=== PATIENT | male | born 1990 | race African-American/Black ===

== ENCOUNTER 2019-07-22 14:26 | Inpatient (IN) | payer BC ==
[2019-07-22 15:53] LABS: Basophils % (A) 0 %; Eosinophils # (A) 0.2 k/uL (0-0.7); Eosinophils % (A) 2 %; HCT 43.3 % (39.0-53.0); HGB 13.9 gm/dL (13.0-17.5); Lymphocytes # (A) 1.4 k/uL (1.0-4.8); Lymphocytes % (A) 15 %; MCH 28.6 pg (25.0-35.0); MCV 89.3 fL (80.0-100.0); Mean Platelet Volume 8.6; Monocytes # (A) 0.3 k/uL (0-1.0); Monocytes % (A) 3 %; Neutrophils # (A) 7.4 k/uL (1.3-7.7); Neutrophils % (A) 79 %; Platelet Count 206 k/uL (150-450); RBC 4.85 m/uL (4.30-5.90); RDW 11.9 % (11.5-15.5); WBC 9.4 k/uL (3.8-10.6)
[2019-07-22 15:59] LABS: ALT 30 U/L (4-49); AST 26 U/L (17-59); African American GFR (CKD) >90 (>60 ml/min/1.73 sqM); Alkaline Phosphatase 84 U/L (38-126); Amylase 103 U/L (30-110); Anion Gap 10 mmol/L; Blood Urea Nitrogen 10 mg/dL (9-20); Calcium 9.1 mg/dL (8.4-10.2); Carbon Dioxide 23 mmol/L (22-30); Chloride 103 mmol/L (98-107); Glucose 104 mg/dL (74-99); Non-African American GFR(CKD) >90 (>60 ml/min/1.73 sqM); Potassium 3.9 mmol/L (3.5-5.1); Sodium 136 mmol/L (137-145); Total Bilirubin 0.4 mg/dL (0.2-1.3); Total Protein 7.7 g/dL (6.3-8.2)
[2019-07-22] MEDS ORDERED: SODIUM CHLORIDE 0.9% 1,000 ML IV ONE ×2 (16:11→17:43)
[2019-07-22] MEDS ORDERED: MORPHINE SULFATE 4 MG/ML SYRINGE IV STA (16:17)
[2019-07-22] MEDS ORDERED: ONDANSETRON 4 MG/2 ML VIAL IVP STA (16:17)
--- NOTE | 2019-07-22 16:20 | ED ---
General Adult HPI - General Chief complaint: Abdominal Pain Stated complaint: Abd Pain/BRANDON Time Seen by Provider: 07/22/19 15:35 Source: patient, RN notes reviewed, old records reviewed Mode of arrival: ambulatory Limitations: no limitations - History of Present Illness Initial comments: 29-year-old male patient with no pertinent past medical history of present to the chief complaint of 4 days of diffuse abdominal pain. Patient states that his whole abdomen. Nonlocalized. States he has nausea without emesis. If he has been somewhat constipated however patient took stool softener and was able to have a bowel movement yesterday. Denies any upper respiratory symptoms, denies any other complaints. Systemic: Pt denies fatigue, fever/chills, rash. Pt denies weakness, night sweats, weight loss. Neuro: Pt denies headache, visual disturbances, syncope or pre-syncope. HEENT: Pt denies ocular discharge or irritation, otalgia, rhinorrhea, pharyngitis or notable lymphadenopathy. Cardiopulmonary: Pt denies chest pain, SOB, heart palpitations, dyspnea on exertion. Abdominal/GI: Pt denies v/d. : Pt denies dysuria, burning w/ urination, frequency/urgency. Denies new onset urinary or bowel incontinence. MSK: Pt denies myalgia, loss of strength or function in extremities. Neuro: Pt denies new onset weakness, paresthesias. - Related Data Allergies Allergy/AdvReac Type Severity Reaction Status Date / Time No Known Allergies Allergy Verified 07/22/19 15:21 Review of Systems ROS Statement: Those systems with pertinent positive or pertinent negative responses have been documented in the HPI. ROS Other: All systems not noted in ROS Statement are negative. Past Medical History Past Medical History: No Reported History History of Any Multi-Drug Resistant Organisms: None Reported Past Surgical History: No Surgical Hx Reported Past Psychological History: No Psychological Hx Reported Smoking Status: Current every day smoker Past Alcohol Use History: None Reported Past Drug Use History: None Reported General Exam - General Exam Comments Initial Comments: Constitutional: NAD, AOX3, Pt has pleasant affect. HEENT: NC/AT, trachea midline, neck supple, no lymphadenopathy. Posterior pharynx non erythematous, without exudates. External ears appear normal, without discharge. Mucous membranes moist. Eyes PERRLA, EOM intact. There is no scleral icterus. No pallor noted. Cardiopulmonary: RRR, no murmurs, rubs or gallops, no JVD noted. Lungs CTAB in anterior and posterior rios. No peripheral edema. Abdominal exam: Abdomen soft and non-distended. Abdomen moderately tender to palpation in all 4 quadrants, no focal area of tenderness. Bowel sounds active in LLQ. No hepatosplenomegaly. No ecchymosis Neuro: CN II-XII grossly intact. No nuchal rigidity. No raccon eyes, no sosa sign, no hemotympanum. No cervical spinal tenderness. MSK: No posterior calf tenderness bilaterally, homans sign negative bilaterally. Posterior tibialis and radial pulse +2 bilaterally. Sensation intact in upper and lower extremities. Full active ROM in upper and lower extremities, 5/5 stregnth. Limitations: no limitations Course Vital Signs 07/22/19 15:16 Temperature 99.0 F Pulse Rate 87 Respiratory 16 Rate Blood Pressure 119/83 O2 Sat by Pulse 100 Oximetry Medical Decision Making - Medical Decision Making 29-year-old male patient with no pertinent past medical history of present to the chief complaint of 4 days of diffuse abdominal pain. Patient states that his whole abdomen. Nonlocalized. States he has nausea without emesis. If he has been somewhat constipated however patient took stool softener and was able to have a bowel movement yesterday. Denies any upper respiratory symptoms, denies any other complaints. Patient vital signs are stable, afebrile. Physical exam displayed generalized abdominal tenderness nonlocalized. Laboratory investigations significant for mildly elevated lipase. CT abdomen and pelvis obtained displayed moderate acute interstitial pancreatitis with inflammatory edema tracking down the retroperitoneum paracolic gutters. Some reactive duodenitis in mild to moderate pelvic free fluid and presacral edema. No biliary ductal dilation. Patient will be admitted for further evaluation, rehydration symptoms. Patient denies alcohol usage. Case discussed with Dr. Tian. - Lab Data Result diagrams: 07/22/19 15:37 07/22/19 15:37 Lab Results 07/22/19 07/22/19 07/22/19 Range/Units 15:37 15:37 15:37 WBC 9.4 (3.8-10.6) k/uL RBC 4.85 (4.30-5.90) m/uL Hgb 13.9 (13.0-17.5) gm/dL Hct 43.3 (39.0-53.0) % MCV 89.3 (80.0-100.0) fL MCH 28.6 (25.0-35.0) pg MCHC 32.0 (31.0-37.0) g/dL RDW 11.9 (11.5-15.5) % Plt Count 206 (150-450) k/uL Neutrophils % 79 % Lymphocytes % 15 % Monocytes % 3 % Eosinophils % 2 % Basophils % 0 % Neutrophils # 7.4 (1.3-7.7) k/uL Lymphocytes # 1.4 (1.0-4.8) k/uL Monocytes # 0.3 (0-1.0) k/uL Eosinophils # 0.2 (0-0.7) k/uL Basophils # 0.0 (0-0.2) k/uL Sodium 136 L (137-145) mmol/L Potassium 3.9 (3.5-5.1) mmol/L Chloride 103 (98-107) mmol/L Carbon Dioxide 23 (22-30) mmol/L Anion Gap 10 mmol/L BUN 10 (9-20) mg/dL Creatinine 0.62 L (0.66-1.25) mg/dL Est GFR (CKD-EPI)AfAm >90 (>60 ml/min/1.73 sqM) Est GFR (CKD-EPI)NonAf >90 (>60 ml/min/1.73 sqM) Glucose 104 H (74-99) mg/dL Plasma Lactic Acid Aaron 1.4 (0.7-2.0) mmol/L Calcium 9.1 (8.4-10.2) mg/dL Total Bilirubin 0.4 (0.2-1.3) mg/dL AST 26 (17-59) U/L ALT 30 (4-49) U/L Alkaline Phosphatase 84 (38-126) U/L Total Protein 7.7 (6.3-8.2) g/dL Albumin 4.0 (3.5-5.0) g/dL Amylase 103 (30-110) U/L Lipase 485 H (23-300) U/L Disposition Clinical Impression: Pancreatitis Disposition: ADMITTED IP TO THIS [facility] Condition: Serious Is patient prescribed a controlled substance at d/c from ED?: No Referrals: Amy Acharya DO [Primary Care Provider] - 1-2 days
--- NOTE | 2019-07-22 17:28 | CT ---
EXAMINATION TYPE: CT abdomen pelvis w con DATE OF EXAM: 07/22/2019 COMPARISON: None HISTORY: 29-year-old male with acute, nonlocalized ABDOMINAL PAIN X4 DAYS TECHNIQUE: Contiguous axial scanning of the abdomen and pelvis following administration of 100 ml Iso xander 300 IV contrast. Delayed images through the kidneys and coronal/sagittal reconstructions perform ed. CT DLP: 2215.6 mGycm Automated exposure control for dose reduction was used. FINDINGS: LUNG BASES: No significant abnormality is appreciated. LIVER/GB: No significant abnormality is appreciated. No biliary ductal dilatation. PANCREAS: Mild thickening of the pancreas with a surrounding fat stranding. No intrapancreatic or per ipancreatic fluid collection is identified. Main portal vein appears patent. Inflammatory edema track s down the bilateral retroperitoneum down into the right greater than left pericolic gutters and into the pelvis. SPLEEN: No significant abnormality is seen. ADRENALS: No significant abnormality is seen. KIDNEYS: A 1 cm left upper pole renal cortical cyst. Symmetric uptake and excretion of contrast from both kidneys. BOWEL: There seems to be some hyperemia of the duodenum. No dilated small bowel. No free air. There i s mild to moderate pelvic free fluid consistent with presacral edema that seems to be tracking down t he abdomen. LYMPH NODES: No abdominal or pelvic lymphadenopathy seen. PELVIS: Bladder partially distended. Left greater than right pelvic phleboliths. As mentioned above, pelvic free fluid and presacral edema. BONES: No osseous destructive process. IMPRESSION: 1. MODERATE ACUTE INTERSTITIAL PANCREATITIS WITH INFLAMMATORY EDEMA TRACKING DOWN THE RETROPERITONEUM AND PERICOLIC GUTTERS. 2. SOME REACTIVE DUODENITIS AND MILD TO MODERATE PELVIC FREE FLUID AND PRESACRAL EDEMA AND 3. NO BILIARY DUCTAL DILATATION.
[2019-07-22] MEDS ORDERED: ONDANSETRON 4 MG/2 ML VIAL IVP PRN (17:41)
[2019-07-22] MEDS ORDERED: NALOXONE 0.4 MG/ML 1 ML VIAL IV PRN (17:41)
[2019-07-22] MEDS ORDERED: PANTOPRAZOLE 40 MG/10 ML VIAL IVP STA (17:43)
[2019-07-22 17:54] LABS: Appearance,Urine Clear (Clear); Bilirubin,Urine Negative (Negative); Blood,Urine Negative (Negative); Color,Urine Yellow; Glucose,Urine (UA) Negative (Negative); Ketones,Urine 2+ (Negative); Leukocyte Esterase,Urine Negative (Negative); Nitrite,Urine Negative (Negative); PH, Urine 7.5 (5.0-8.0); Protein,Urine Negative (Negative); Specific Gravity,Urine 1.032 (1.001-1.035); Urobilinogen,Urine <2.0 mg/dL (<2.0)
[2019-07-22] MEDS: MORPHINE SULFATE 4 MG/ML SYRINGE IV PRN (19:41)
[2019-07-22] MEDS: SODIUM CHLORIDE 0.9% 1,000 ML IV SCH (21:51)
[2019-07-23] MEDS: MORPHINE SULFATE 4 MG/ML SYRINGE IV PRN ×4 (00:35→19:40)
[2019-07-23] MEDS: SODIUM CHLORIDE 0.9% 1,000 ML IV SCH ×4 (04:03→23:23)
[2019-07-23] MEDS: PANTOPRAZOLE 40 MG/10 ML VIAL IVP SCH (07:32)
[2019-07-23 08:48] LABS: Basophils % (A) 0 %; Eosinophils % (A) 0 %; HGB 12.7 gm/dL (13.0-17.5); Hypochromasia Slight; Lymphocytes % (A) 16 %; MCH 28.7 pg (25.0-35.0); MCHC 31.8 g/dL (31.0-37.0); MCV 90.4 fL (80.0-100.0); Mean Platelet Volume 8.7; Monocytes # (A) 0.6 k/uL (0-1.0); Monocytes % (A) 5 %; Neutrophils # (A) 9.6 k/uL (1.3-7.7); Neutrophils % (A) 77 %; Platelet Count 193 k/uL (150-450); RBC 4.42 m/uL (4.30-5.90); RDW 12.1 % (11.5-15.5); WBC 12.4 k/uL (3.8-10.6)
[2019-07-23 09:05] LABS: ALT 23 U/L (4-49); AST 22 U/L (17-59); African American GFR (CKD) >90 (>60 ml/min/1.73 sqM); Albumin 3.4 g/dL (3.5-5.0); Alkaline Phosphatase 66 U/L (38-126); Anion Gap 8 mmol/L; Blood Urea Nitrogen 9 mg/dL (9-20); Calcium 8.3 mg/dL (8.4-10.2); Carbon Dioxide 22 mmol/L (22-30); Chloride 104 mmol/L (98-107); Glucose 86 mg/dL (74-99); Non-African American GFR(CKD) >90 (>60 ml/min/1.73 sqM); Potassium 3.7 mmol/L (3.5-5.1); Sodium 134 mmol/L (137-145); Total Bilirubin 0.7 mg/dL (0.2-1.3); Total Protein 6.8 g/dL (6.3-8.2)
[2019-07-23] MEDS: ACETAMINOPHEN TAB 325 MG TAB PO PRN (22:01)
--- NOTE | 2019-07-23 22:54 | P.HPIM ---
History of Present Illness H&P Date: 07/23/19 Chief Complaint: abdominal pain Rober Donnelly is a 29 yo M with no significant PMH who presented to the ED complaining of a recent history of abdominal pain over the past week. He states that every day he has had generalized abdominal pain, no appetite and nausea. He denies any vomiting. He is a nonsmoker and reports infrequent alcohol use, most recently a few weeks ago. He denies any previous history of similar events. He denies any recent viral symptoms including fever, chills, body aches, cough. In the ED vitals were stable, lipase 485, WBC and LFTs unremarkable. Review of Systems All systems: negative Constitutional: Reports malaise, Denies chills, Denies fever Eyes: denies blurred vision, denies pain Ears, nose, mouth and throat: Denies headache, Denies sore throat Cardiovascular: Denies chest pain, Denies shortness of breath Respiratory: Denies cough Gastrointestinal: Reports abdominal pain, Reports nausea, Denies diarrhea, Denies vomiting Musculoskeletal: Denies myalgias Integumentary: Denies pruritus, Denies rash Neurological: Denies numbness, Denies weakness Psychiatric: Denies anxiety, Denies depression Endocrine: Denies fatigue, Denies weight change Past Medical History Past Medical History: No Reported History History of Any Multi-Drug Resistant Organisms: None Reported Past Surgical History: No Surgical Hx Reported Past Anesthesia/Blood Transfusion Reactions: No Reported Reaction Past Psychological History: No Psychological Hx Reported Smoking Status: Current every day smoker Past Alcohol Use History: None Reported Past Drug Use History: None Reported - Past Family History Father Family Medical History: No Reported History Mother Family Medical History: No Reported History Medications and Allergies Home Medications Medication Instructions Recorded Confirmed Type Ibuprofen 600 mg PO Q8H PRN 07/23/19 07/23/19 History Allergies Allergy/AdvReac Type Severity Reaction Status Date / Time No Known Allergies Allergy Verified 07/23/19 10:01 Physical Exam Vitals: Vital Signs Temp Pulse Pulse Pulse Resp BP BP 07/23/19 21:10 101.8 F H 99 18 115/66 07/23/19 15:11 92 20 07/23/19 12:09 98.9 F 90 20 129/74 07/23/19 08:00 97 16 07/23/19 05:00 100.3 F H 97 16 121/71 07/23/19 00:34 99.6 F 102 H 16 125/80 07/23/19 00:12 100.1 F H 94 20 124/74 Pulse Ox 07/23/19 21:10 95 07/23/19 15:11 07/23/19 12:09 97 07/23/19 08:00 07/23/19 05:00 98 07/23/19 00:34 98 07/23/19 00:12 98 Intake and Output 07/23/19 07/23/19 07/23/19 06:59 14:59 22:59 Intake Total 1200 2660 Balance 1200 2660 Intake: Intake, IV Titration 1200 1800 Amount Sodium Chloride 0.9% 1, 1200 1800 000 ml @ 150 mls/hr IV . Q6H40M [facility] Rx#:[id number] Oral 860 Other: Voiding Method Toilet Toilet Toilet Urinal Urinal Urinal # Voids 2 4 4 Weight 149.685 kg General: well nourished, well developed, NAD. Vitals reviewed Eyes: PERRL, EOMI, conjunctiva normal HENT: normocephalic, mucus membranes moist Neck: supple, no JVD Lungs: normal respiratory effort, no wheezes or rales CV: Regular rate and rhythm, no murmur. Peripheral pulses 2+ Abdomen: soft, nondistended, no organomegaly. Tenderness to palpation Lymph: no cervical or axillary LAD Skin: warm and dry. Neuro: A&Ox3, normal mood and affect Results CBC & Chem 7: 07/23/19 08:04 07/23/19 08:04 Labs: Abnormal Lab Results - Last 24 Hours (Table) 07/23/19 07/23/19 Range/Units 08:04 08:04 WBC 12.4 H (3.8-10.6) k/uL Hgb 12.7 L (13.0-17.5) gm/dL Neutrophils # 9.6 H (1.3-7.7) k/uL Sodium 134 L (137-145) mmol/L Calcium 8.3 L (8.4-10.2) mg/dL Albumin 3.4 L (3.5-5.0) g/dL Thrombosis Risk Factor Assmnt - Choose All That Apply Each Factor Represents 1 point: Obesity (BMI >25) Other Risk Factors: No Other congenital or acquired thrombophilia - If yes, enter type in comment: No Thrombosis Risk Factor Assessment Total Risk Factor Score: 1 Thrombosis Risk Factor Assessment Level: Low Risk Assessment and Plan (1) Pancreatitis Current Visit: Yes Status: Acute Code(s): K85.90 - ACUTE PANCREATITIS WITHOUT NECROSIS OR INFECTION, UNSP SNOMED Code(s): 10877440 Plan: Acute pancreatitis. GI consult. Consider viral pancreatitis. Pain control and IV fluids. Clear liquid diet
[2019-07-24] MEDS: MORPHINE SULFATE 4 MG/ML SYRINGE IV PRN ×4 (01:05→19:55)
--- NOTE | 2019-07-24 04:39 | CONS ---
CONSULTATION DATE OF DICTATION: 07/23/2019 REASON FOR CONSULTATION: Acute pancreatitis. HISTORY OF PRESENT ILLNESS: The patient is a 29-year-old -[place] male with no significant past medical history, admitted to the hospital with diffuse abdominal pain mostly in the epigastric area and right upper quadrant area for the last 4 days duration. The pain continued to get progressively worse; hence, he came to the emergency room yesterday and was noted to have mild elevation of amylase and lipase consistent with acute pancreatitis. He did have a CT of the abdomen and pelvis done that showed a peripancreatic inflammation with inflammatory edema tracking down the retroperitoneum and pericolic gutters consistent with acute pancreatitis. No evidence of gallstone or biliary ductal dilation noted. The patient never had pancreatitis in the past. He reports no prior history of peptic ulcer disease. Denies any new medications that he has been taking recently. No family history of acute pancreatitis. He denies any alcohol use. PAST MEDICAL HISTORY: Unremarkable. PAST SURGICAL HISTORY: Unremarkable. MEDICATIONS AT HOME: Ibuprofen p.r.n. ALLERGIES: No known drug allergies. SOCIAL HISTORY: No smoking. No alcohol use. FAMILY HISTORY: Unremarkable. REVIEW OF SYSTEMS: CARDIOPULMONARY: No chest pain or shortness of breath. GENITOURINARY: No dysuria or hematuria. MUSCULOSKELETAL: Unremarkable. SKIN: Unremarkable. ENDOCRINE: Unremarkable. PSYCHIATRY: Unremarkable. NEUROLOGY: Unremarkable. ENT/VISION: Unremarkable. CONSTITUTIONAL: No recent weight loss. No fever, chills, night sweats. PHYSICAL EXAMINATION: On physical examination, he appears comfortable, no apparent distress. Vital signs are stable. Blood pressure is 129/74, T-max was 100.3, but temperature today is 98.9. HEENT EXAMINATION: Unremarkable. Conjunctivae pink. Sclerae anicteric. Oral cavity, no lesions. NECK: No JVD or lymph node enlargement. CHEST: Clear to auscultation. HEART: Regular rate and rhythm. ABDOMEN: Soft. There was tenderness in the epigastric and all of the upper abdomen. No rebound or rigidity. Mild tenderness in the lower abdominal area. EXTREMITIES: No pedal edema. SKIN: No rashes. NEUROLOGIC: Alert and oriented x3. No focal deficits. LABS: Labs at the time of admission to the hospital: Amylase is 103, lipase is 485. Today, lipase is 255. AST, ALT, T-bilirubin and alkaline phosphatase are within normal limits. WBC 9.4, hemoglobin 13.9. Today, WBC is 12.4 and hemoglobin is 12.7. IMPRESSION: This is a patient who presents to the hospital with epigastric pain for the last 3 to 4 days duration, no history of alcohol use, noted to have mild elevation of lipase consistent with acute pancreatitis. CT of the abdomen is showing findings of peripancreatic edema with interstitial edema tracking down into the pericolic gutters consistent with acute pancreatitis. As mentioned earlier, no history of alcohol use and CT of the abdomen did not show any evidence of gallstones. His normal transaminases argue against acute biliary pancreatitis. Etiology of pancreatitis remains unclear, needs to be investigated further. RECOMMENDATIONS: 1. Continue with symptomatic and supportive care. 2. N.p.o. except ice chips. 3. Repeat labs in the morning. 4. We will obtain fasting serum triglycerides as well as IgG4 levels to evaluate for autoimmune pancreatitis. 5. If symptomatically he is improving, we can start him on a clear liquid diet tomorrow and advance as tolerated. 6. We will follow with you closely. Thank you for this consultation. MMODL / IJN: [id number] /
[2019-07-24] MEDS: ACETAMINOPHEN TAB 325 MG TAB PO PRN ×2 (06:02→11:37)
[2019-07-24] MEDS: SODIUM CHLORIDE 0.9% 1,000 ML IV SCH ×3 (06:05→20:02)
[2019-07-24] MEDS: PANTOPRAZOLE 40 MG/10 ML VIAL IVP SCH (07:34)
[2019-07-24 08:00] LABS: Cholesterol 167 mg/dL (<200); HDL Cholesterol 36 mg/dL (40-60); LDL Cholesterol,Calculated 114 mg/dL (0-99); Triglycerides 83 mg/dL (<150)
[2019-07-24] MEDS: SENNOSIDES-DOCUSATE SODIUM 1 EACH TAB PO SCH ×2 (11:37→20:02)
[2019-07-24 13:15] LABS: IgG Subclass 3 22.3 mg/dL (11.0-85.0); IgG Subclass 4 76.2 mg/dL (3.0-175.0)
[2019-07-24] MEDS: IBUPROFEN 400 MG TAB PO PRN (18:12)
--- NOTE | 2019-07-24 22:41 | PN ---
PROGRESS NOTE DATE OF DICTATION: 07/24/2019 This patient is a 29-year-old pleasant white male admitted to the hospital with acute pancreatitis. He is doing better today. Still has some epigastric discomfort. On a clear liquid diet, tolerating well. Has some nausea but no emesis. No fever, chills, night sweats. PHYSICAL EXAMINATION: VITAL SIGNS: Blood pressure 112/70, pulse rate 81, T-max 99. HEENT examination unremarkable. Conjunctivae pink. Sclerae anicteric. Oral cavity no lesions. NECK: No JVD or lymph node enlargement. CHEST: Clear to auscultation. HEART: Regular rate and rhythm. ABDOMEN: Soft. There was tenderness in the epigastric area. Bowel sounds are positive. No organomegaly. EXTREMITIES: No pedal edema. NEUROLOGIC: Alert and oriented x3. No focal deficits. LABS: WBC 12.4, hemoglobin 12.7, platelets normal. Basic metabolic panel is within normal limits. Lipase is normal at 257. Fasting triglycerides 83. Serum IgG4 levels are still pending. IMPRESSION: Acute pancreatitis, first episode. No history of alcohol use. Ultrasound of the gallbladder did not show any evidence of gallstones. The patient does not drink any alcohol. Fasting triglyceride levels are nausea. Serum IgG4 levels are still pending. Etiology of pancreatitis remains unclear. Overall, patient is gradually improving. RECOMMENDATIONS: 1. Advance to a low-fat diet. 2. Pain medications as needed. 3. Repeat labs in the morning. 4. If he is improving, he can be discharged home with outpatient followup in 2-3 weeks. Based on his symptoms, we will consider referral for an EUS of the pancreas on an outpatient basis. The plan was discussed with the patient. He is agreeable to it. Thank you for this consultation. MMODL / IJN: [id number] /
--- NOTE | 2019-07-24 23:01 | P.PN ---
Subjective Progress Note Date: 07/24/19 Pt continues to complain of abdominal pain but feels it is improving. He was febrile overnight with tmax 101.8, this resolved with tylenol and no further fevers. Objective - Vital Signs Vital signs: Vital Signs Temp 98.5 F 07/24/19 20:08 Pulse 82 07/24/19 15:15 Resp 20 07/24/19 15:15 BP 112/70 07/24/19 12:17 Pulse Ox 97 07/24/19 12:17 Intake & Output 07/24/19 07/24/19 07/25/19 06:59 18:59 06:59 Intake Total 2980 2000 1000 Balance 2980 2000 1000 Intake: Intake, IV Titration 1800 900 400 Amount Sodium Chloride 0.9% 1, 1800 900 400 000 ml @ 150 mls/hr IV . Q6H40M [facility] Rx#:[id number] Oral 1180 1100 600 Other: Voiding Method Toilet Toilet Urinal Urinal # Voids 3 4 1 - Exam General: well nourished, well developed, NAD. Vitals reviewed Abdomen: soft, nondistended, no organomegaly. TTP epigastric, improved Skin: warm and dry. Neuro: A&Ox3, normal mood and affect - Labs CBC & Chem 7: 07/23/19 08:04 07/23/19 08:04 Labs: Abnormal Lab Results - Last 24 Hours (Table) 07/23/19 07/24/19 Range/Units 08:04 06:55 LDL Cholesterol, Calc 114 H (0-99) mg/dL HDL Cholesterol 36 L (40-60) mg/dL IgG1 1130.0 H (405.0-1011.0) mg/dL Assessment and Plan (1) Pancreatitis Current Visit: Yes Status: Acute Code(s): K85.90 - ACUTE PANCREATITIS WITHOUT NECROSIS OR INFECTION, UNSP SNOMED Code(s): 11257195 Plan: Acute pancreatitis. GI following and rule out autoimmune pancreatitis. Consider viral. Pain control and IV fluids. Advance diet today
[2019-07-24 23:05] VITALS: RESP 16
[2019-07-25] MEDS: MORPHINE SULFATE 4 MG/ML SYRINGE IV PRN ×2 (03:24→07:36)
[2019-07-25] MEDS: SODIUM CHLORIDE 0.9% 1,000 ML IV SCH ×2 (03:26→12:11)
[2019-07-25 05:58] VITALS: BP 138/84; PULSE 75; TEMP 98.4
[2019-07-25] MEDS: IBUPROFEN 400 MG TAB PO PRN (07:35)
[2019-07-25] MEDS: SENNOSIDES-DOCUSATE SODIUM 1 EACH TAB PO SCH (07:35)
[2019-07-25 07:36] LABS: ALT 18 U/L (4-49); AST 19 U/L (17-59); African American GFR (CKD) >90 (>60 ml/min/1.73 sqM); Albumin 3.1 g/dL (3.5-5.0); Alkaline Phosphatase 65 U/L (38-126); Anion Gap 5 mmol/L; Blood Urea Nitrogen 6 mg/dL (9-20); Calcium 8.4 mg/dL (8.4-10.2); Carbon Dioxide 27 mmol/L (22-30); Chloride 105 mmol/L (98-107); Glucose 99 mg/dL (74-99); Non-African American GFR(CKD) >90 (>60 ml/min/1.73 sqM); Potassium 3.3 mmol/L (3.5-5.1); Sodium 137 mmol/L (137-145); Total Bilirubin 0.7 mg/dL (0.2-1.3); Total Protein 6.4 g/dL (6.3-8.2)
[2019-07-25] MEDS: PANTOPRAZOLE 40 MG/10 ML VIAL IVP SCH (07:38)
[2019-07-25] MEDS ORDERED: POTASSIUM CHLORIDE ER 20 MEQ TAB.ER PO STA (10:49)
--- NOTE | 2019-07-25 11:22 | P.DS ---
Providers Date of admission: 07/22/19 17:59 Expected date of discharge: 07/25/19 Attending physician: Tariq Miller MD Consults: 07/22/19 17:41 Consult Physician Stat Consulting Provider: Marya Rico Consult Reason/Comments: acute pancreatitis Do you want consulting provider notified?: Yes Primary care physician: Amy Acharya Hospital Course: Final Diagnoses: Acute pancreatitis, rule out autoimmune pancreatitis, possibly viral Ongoing nicotine dependence Hospital course:Rober Donnelly is a 29 yo M with no significant PMH who presented to the ED complaining of a recent history of abdominal pain over the past week. He states that every day he has had generalized abdominal pain, no appetite and nausea. He denies any vomiting. He is a nonsmoker and reports i nfrequent alcohol use, most recently a few weeks ago. He denies any previous history of similar events. He denies any recent viral symptoms including fever, chills, body aches, cough. In the ED vitals were stable, lipase 485, WBC and LFTs unremarkable. Evaluated by GI, workup in progress, ruling out autoimmune. GI also recommending possibly outpatient EUS. Afebrile, tolerating a low-fat diet, with no nausea or vomiting. Significant clinical improvement Cleared by GI for discharge. Patient is being discharged home today in stable condition with guarded prognosis. The impression and plan of care has been dictated as directed. : I performed a history and examination of this patient, discussed the same with the dictator. I agree with the dictator's note ,documented as a scribe. Any additional findings or plans will be noted. Patient Condition at Discharge: Stable Plan - Discharge Summary Discharge Rx Participant: No New Discharge Prescriptions: New Hydrocodone/Acetaminophen [[place] 5-325] 1 tab PO Q6HR PRN 3 Days #12 tab PRN Reason: Pain No Action Ibuprofen 600 mg PO Q8H PRN PRN Reason: Headache Discharge Medication List Ibuprofen 600 mg PO Q8H PRN 07/23/19 [History] Hydrocodone/Acetaminophen [[place] 5-325] 1 tab PO Q6HR PRN 3 Days #12 tab 07/25/19 [Rx] Follow up Appointment(s)/Referral(s): Marya Rico MD [STAFF PHYSICIAN] - 08/07/19 10:30 am (Outpatient EUS to be arranged) Amy Acharya DO [Primary Care Provider] - 3 Days (please call office to set up appt.) Activity/Diet/Wound Care/Special Instructions: Diet low-fat No smoking
== END 2019-07-25 12:07 | disposition home or self-care (01) | DRG 439 ==
LOC: EC 14:26 → 5NMEDONC 17:59
PROVIDERS: ADMIT Family Medicine; ATTEND Family Medicine
DX: K85.80 Other acute pancreatitis without necrosis or infection (principal); Z68.41 Body mass index [BMI] 40.0-44.9, adult; E66.9 Obesity, unspecified; F17.200 Nicotine dependence, unspecified, uncomplicated; K29.80 Duodenitis without bleeding; R74.8 Abnormal levels of other serum enzymes
CPT/HCPCS: 36415; 74177; 80053; 80061; 81003; 82150; 82787; 83605; 83690; 85025; 87040; 87635; 96361; 96374; 96375; 96376; 99285

== ENCOUNTER 2020-05-09 22:23 | Emergency (ER) | payer BC ==
[2020-05-09 22:42] VITALS: RESP 18
[2020-05-09] MEDS ORDERED: ONDANSETRON 4 MG/2 ML VIAL IVP STA (22:46)
[2020-05-09] MEDS ORDERED: SODIUM CHLORIDE 0.9% 500 ML 500 ML IV STA (22:46)
--- NOTE | 2020-05-09 23:09 | XR ---
EXAMINATION TYPE: XR KUB DATE OF EXAM: 05/09/2020 COMPARISON: NONE HISTORY: Abdominal pain TECHNIQUE: 2 views FINDINGS: There is no sign of intestinal obstruction or pneumoperitoneum. Fecal pattern is normal. Anne-Marie ng bases are clear. There are no pathologic calcifications over the kidneys. There is unusual 2 cm lo ng oval-shaped calcification in the pelvis on the left side. IMPRESSION: Nonacute abdomen.
[2020-05-09 23:19] LABS: Basophils % (A) 0 %; Eosinophils # (A) 0.2 k/uL (0-0.7); Eosinophils % (A) 3 %; HCT 41.6 % (39.0-53.0); HGB 13.5 gm/dL (13.0-17.5); Lymphocytes # (A) 2.5 k/uL (1.0-4.8); Lymphocytes % (A) 32 %; MCH 28.6 pg (25.0-35.0); MCHC 32.4 g/dL (31.0-37.0); MCV 88.2 fL (80.0-100.0); Mean Platelet Volume 8.7; Monocytes # (A) 0.3 k/uL (0-1.0); Monocytes % (A) 4 %; Neutrophils # (A) 4.6 k/uL (1.3-7.7); Neutrophils % (A) 59 %; Platelet Count 210 k/uL (150-450); RBC 4.71 m/uL (4.30-5.90); RDW 12.1 % (11.5-15.5); WBC 7.8 k/uL (3.8-10.6)
[2020-05-09 23:20] LABS: Appearance,Urine Clear (Clear); Bilirubin,Urine Negative (Negative); Blood,Urine Negative (Negative); Color,Urine Yellow; Glucose,Urine (UA) Negative (Negative); Ketones,Urine Negative (Negative); Leukocyte Esterase,Urine Negative (Negative); Nitrite,Urine Negative (Negative); Protein,Urine Trace (Negative); Specific Gravity,Urine 1.032 (1.001-1.035); Urobilinogen,Urine <2.0 mg/dL (<2.0)
[2020-05-09 23:39] LABS: ALT 26 U/L (4-49); AST 28 U/L (17-59); African American GFR (CKD) >90 (>60 ml/min/1.73 sqM); Albumin 4.2 g/dL (3.5-5.0); Alkaline Phosphatase 74 U/L (38-126); Amylase 46 U/L (30-110); Anion Gap 6 mmol/L; Blood Urea Nitrogen 15 mg/dL (9-20); Calcium 9.5 mg/dL (8.4-10.2); Carbon Dioxide 30 mmol/L (22-30); Chloride 103 mmol/L (98-107); Glucose 107 mg/dL (74-99); Lipase 23 U/L (23-300); Non-African American GFR(CKD) >90 (>60 ml/min/1.73 sqM); Sodium 139 mmol/L (137-145); Total Bilirubin 0.7 mg/dL (0.2-1.3); Total Protein 7.8 g/dL (6.3-8.2)
[2020-05-10] MEDS ORDERED: HYDROmorphone 0.5 MG/0.5 ML SYRINGE IVP STA
--- NOTE | 2020-05-10 00:33 | ED ---
Nausea/Vomiting/Diarrhea HPI - General Chief complaint: Nausea/Vomiting/Diarrhea Stated complaint: Abdominal pain Time Seen by Provider: 05/09/20 22:45 Source: patient Mode of arrival: ambulatory Limitations: no limitations - History of Present Illness Initial comments: This patient is a 30-year-old man who presents to be evaluated for upper abdominal pain. The pain had come on after he had eaten [employer] early in the morning. The patient became concerned when he had a number of episodes of vomiting and the combination of symptoms reminded him of a previous episode of pancreatitis. MD complaint: nausea, vomiting, abdominal pain -: hour(s) Description of Vomiting: food contents Associated Abdominal Pain: Yes Location: periumbilical, LUQ, RUQ, epigastric Radiation: none Severity: severe Quality: cramping Consistency: intermittent Improves with: none Worsens with: none Associated Symptoms: denies other symptoms - Related Data Home Medications Medication Instructions Recorded Confirmed Ibuprofen 600 mg PO Q8H PRN 07/23/19 07/23/19 Previous Rx's Medication Instructions Recorded Hydrocodone/Acetaminophen [[place] 1 tab PO Q6HR PRN 3 Days #12 tab 07/25/19 5-325] Dicyclomine [Bentyl] 20 mg PO QID #15 tablet 05/10/20 Ondansetron Odt [Zofran ODT] 4 mg PO Q8HR PRN #10 tab 05/10/20 Allergies Allergy/AdvReac Type Severity Reaction Status Date / Time No Known Allergies Allergy Verified 05/09/20 22:42 Review of Systems ROS Statement: Those systems with pertinent positive or pertinent negative responses have been documented in the HPI. ROS Other: All systems not noted in ROS Statement are negative. Constitutional: Denies: fever, chills Respiratory: Denies: cough, dyspnea Cardiovascular: Denies: chest pain, palpitations, edema Gastrointestinal: Reports: as per HPI, abdominal pain, nausea, vomiting. Denies: diarrhea, melena, hematochezia Genitourinary: Denies: dysuria, hematuria Musculoskeletal: Denies: back pain Skin: Denies: rash Neurological: Denies: headache, weakness, numbness Past Medical History Past Medical History: No Reported History History of Any Multi-Drug Resistant Organisms: None Reported Past Surgical History: No Surgical Hx Reported Past Anesthesia/Blood Transfusion Reactions: No Reported Reaction Past Psychological History: No Psychological Hx Reported Smoking Status: Current every day smoker Past Alcohol Use History: Occasional Past Drug Use History: None Reported - Past Family History Father Family Medical History: No Reported History Mother Family Medical History: No Reported History General Exam Limitations: no limitations General appearance: alert, in no apparent distress Head exam: Present: atraumatic, normocephalic Eye exam: Present: normal appearance. Absent: scleral icterus, conjunctival injection Neck exam: Present: normal inspection Respiratory exam: Present: normal lung sounds bilaterally. Absent: respiratory distress, wheezes, rales, rhonchi, stridor Cardiovascular Exam: Present: regular rate, normal rhythm, normal heart sounds. Absent: systolic murmur, diastolic murmur, rubs, gallop GI/Abdominal exam: Present: soft, normal bowel sounds. Absent: distended, tenderness, guarding, rebound, rigid, mass, pulsatile mass, hernia Extremities exam: Present: normal inspection, normal capillary refill. Absent: pedal edema, calf tenderness Back exam: Present: normal inspection. Absent: CVA tenderness (R), CVA tenderness (L) Neurological exam: Present: alert Skin exam: Present: warm, dry, intact, normal color. Absent: rash Course Vital Signs 05/09/20 05/10/20 05/10/20 22:40 00:08 00:45 Temperature 98.8 F 98.4 F Pulse Rate 53 L 52 L 54 L Respiratory 18 18 18 Rate Blood Pressure 117/75 100/68 116/70 O2 Sat by Pulse 98 98 98 Oximetry Medical Decision Making - Medical Decision Making Patient is 30-year-old man with abdominal pain and vomiting that has resolved with treatment here in emergency department. There is no evidence of pancreatitis at the moment. Discussed appropriate further care and follow-up as well as return parameters, but at the moment patient is feeling well and like to go home. - Lab Data Result diagrams: 05/09/20 22:58 05/09/20 22:58 Lab Results 05/09/20 05/09/20 05/09/20 Range/Units 22:58 22:58 22:58 WBC 7.8 (3.8-10.6) k/uL RBC 4.71 (4.30-5.90) m/uL Hgb 13.5 (13.0-17.5) gm/dL Hct 41.6 (39.0-53.0) % MCV 88.2 (80.0-100.0) fL MCH 28.6 (25.0-35.0) pg MCHC 32.4 (31.0-37.0) g/dL RDW 12.1 (11.5-15.5) % Plt Count 210 (150-450) k/uL MPV 8.7 Neutrophils % 59 % Lymphocytes % 32 % Monocytes % 4 % Eosinophils % 3 % Basophils % 0 % Neutrophils # 4.6 (1.3-7.7) k/uL Lymphocytes # 2.5 (1.0-4.8) k/uL Monocytes # 0.3 (0-1.0) k/uL Eosinophils # 0.2 (0-0.7) k/uL Basophils # 0.0 (0-0.2) k/uL Sodium 139 (137-145) mmol/L Potassium 4.0 (3.5-5.1) mmol/L Chloride 103 (98-107) mmol/L Carbon Dioxide 30 (22-30) mmol/L Anion Gap 6 mmol/L BUN 15 (9-20) mg/dL Creatinine 0.77 (0.66-1.25) mg/dL Est GFR (CKD-EPI)AfAm >90 (>60 ml/min/1.73 sqM) Est GFR (CKD-EPI)NonAf >90 (>60 ml/min/1.73 sqM) Glucose 107 H (74-99) mg/dL Calcium 9.5 (8.4-10.2) mg/dL Total Bilirubin 0.7 (0.2-1.3) mg/dL AST 28 (17-59) U/L ALT 26 (4-49) U/L Alkaline Phosphatase 74 (38-126) U/L Total Protein 7.8 (6.3-8.2) g/dL Albumin 4.2 (3.5-5.0) g/dL Amylase 46 (30-110) U/L Lipase 23 (23-300) U/L Urine Color Yellow Urine Appearance Clear (Clear) Urine pH 6.0 (5.0-8.0) Ur Specific Vance 1.032 (1.001-1.035) Urine Protein Trace H (Negative) Urine Glucose (UA) Negative (Negative) Urine Ketones Negative (Negative) Urine Blood Negative (Negative) Urine Nitrite Negative (Negative) Urine Bilirubin Negative (Negative) Urine Urobilinogen <2.0 (<2.0) mg/dL Ur Leukocyte Esterase Negative (Negative) Disposition Clinical Impression: Abdominal pain Disposition: HOME SELF-CARE Condition: Good Instructions (If sedation given, give patient instructions): Acute Nausea and Vomiting (ED), Abdominal Pain (ED) Prescriptions: Dicyclomine [Bentyl] 20 mg PO QID #15 tablet Ondansetron Odt [Zofran ODT] 4 mg PO Q8HR PRN #10 tab PRN Reason: Nausea Is patient prescribed a controlled substance at d/c from ED?: No Referrals: None,Stated [Primary Care Provider] - 1-2 days
[2020-05-10 00:46] VITALS: BP 116/70; PULSE 54; TEMP 98.4
== END 2020-05-10 00:45 | disposition home or self-care (01) ==
LOC: EC 22:23
DX: R10.10 Upper abdominal pain, unspecified (principal); R11.2 Nausea with vomiting, unspecified; F17.200 Nicotine dependence, unspecified, uncomplicated
CPT/HCPCS: 36415; 80053; 82150; 83690; 85025; 81003; 74018; J2405; J1170; 99284

== ENCOUNTER 2022-12-27 06:09 | Emergency (ER) | payer BC ==
[2022-12-27] MEDS ORDERED: IPRATROPIUM-ALBUTEROL 3 ML NEB INHALATION STA (07:39)
--- NOTE | 2022-12-27 07:45 | ED ---
URI HPI - General Chief Complaint: Upper Respiratory Infection Stated Complaint: SOB Time Seen by Provider: 12/27/22 06:43 Source: patient, RN notes reviewed Mode of arrival: ambulatory Limitations: no limitations - History of Present Illness Initial Comments: This is a 32-year-old male who presents to the emergency department for body aches and pain when breathing. States that over the last 24 hours, he has started to feel generally unwell with nasal congestion and body aches. States that anytime he coughs or takes a deep breath he develops pain in the chest and rib cage area. Denies any difficulty breathing. He vapes but does not smoke cigarettes. Denies any history of asthma or other respiratory illnesses. His has also started to feel ill. Denies any fevers or chills. MD Complaint: nasal congestion - Related Data Home Medications Medication Instructions Recorded Confirmed Ibuprofen 600 mg PO Q8H PRN 07/23/19 07/23/19 Previous Rx's Medication Instructions Recorded Hydrocodone/Acetaminophen [[place] 1 tab PO Q6HR PRN 3 Days #12 tab 07/25/19 5-325] Dicyclomine [Bentyl] 20 mg PO QID #15 tablet 05/10/20 Ondansetron Odt [Zofran ODT] 4 mg PO Q8HR PRN #10 tab 05/10/20 Albuterol Sulfate [Albuterol 1 puff PO Q4-6H PRN #8.5 gm 12/27/22 Sulfate Hfa] predniSONE 50 mg PO DAILY 5 Days #5 tab 12/27/22 Allergies Allergy/AdvReac Type Severity Reaction Status Date / Time No Known Allergies Allergy Verified 12/06/20 18:51 Review of Systems ROS Statement: Those systems with pertinent positive or pertinent negative responses have been documented in the HPI. ROS Other: All systems not noted in ROS Statement are negative. Past Medical History Past Medical History: No Reported History Additional Past Medical History / Comment(s): trigeminal neuralgia History of Any Multi-Drug Resistant Organisms: None Reported Past Surgical History: No Surgical Hx Reported Past Anesthesia/Blood Transfusion Reactions: No Reported Reaction Past Psychological History: No Psychological Hx Reported Smoking Status: Current every day smoker Past Alcohol Use History: Occasional Past Drug Use History: None Reported - Past Family History Father Family Medical History: No Reported History Mother Family Medical History: No Reported History General Exam Limitations: no limitations General appearance: alert, in no apparent distress Head exam: Present: atraumatic, normocephalic, normal inspection Respiratory exam: Present: normal lung sounds bilaterally. Absent: respiratory distress, wheezes, rales, rhonchi, stridor Cardiovascular Exam: Present: regular rate, normal rhythm, normal heart sounds. Absent: systolic murmur, diastolic murmur, rubs, gallop, clicks Neurological exam: Present: alert, oriented X3, CN II-XII intact Psychiatric exam: Present: normal affect, normal mood Skin exam: Present: warm, dry, intact, normal color. Absent: rash Course Vital Signs 12/27/22 12/27/22 12/27/22 06:14 08:10 08:18 Temperature 98.8 F Pulse Rate 78 70 74 Respiratory 16 Rate Blood Pressure 125/76 O2 Sat by Pulse 100 Oximetry 12/27/22 09:05 Temperature 98.5 F Pulse Rate 75 Respiratory 18 Rate Blood Pressure 128/85 O2 Sat by Pulse 99 Oximetry Medical Decision Making - Medical Decision Making This is a 32-year-old male who presents to the emergency department for body aches and nasal congestion. Was pt. sent in by a medical professional or institution? @ -No Did you speak to anyone other than the patient for history? @ -No Did you review nursing and triage notes? @ -Yes, and I agree, it is accurate with regards to the patient's symptoms. Were old charts reviewed? @ -No Differential Diagnosis? @ -Differential Congestion/Body Aches: COVID, influenza, mononucleosis, allergic rhinitis, viral URI, this is not meant to be an all-inclusive list. EKG interpreted by me (3pts min.)? @ -Not obtained X-rays interpreted by me (1pt min.)? @ -Chest x-ray obtained, my interpretation identifies no localized consolidations or infiltrates. CT interpreted by me (1pt min.)? @ -Not obtained U/S interpreted by me (1pt. min.)? @ -Not obtained What testing was considered but not performed? (CT, X-rays, U/S, labs)? Why? @ -None What meds were considered but not given? Why? @ -None Did you discuss the management of the patient with other professionals? @ -No Did you reconcile home meds? @ -No Was smoking cessation discussed for >3mins.? @ -I discussed smoking cessation for greater than 3 minutes. The risk of smoking were discussed with the patient including but not limited to risks of cancer, stroke, coronary artery disease and COPD. Also discussed with patient were multiple methods of quitting smoking. Lastly we discussed the financial cost of smoking. Was critical care preformed (if so, how long)? @ -No Were there social determinants of health that impacted care today? How? (Homelessness, low income, unemployed, alcoholism, drug addiction, transportation, low edu. Level, literacy, decrease access to med. care, detention, rehab)? @ -No Was there de-escalation of care discussed even if they declined? (Discuss DNR or withdrawal of care, Hospice)? @ -No What co-morbidities impacted this encounter? (DM, HTN, Smoking, COPD, CAD, Cancer, CVA, Hep., AIDS, mental health diagnosis, sleep apnea, morbid obesity)? @ -Smoking Was patient admitted / discharged? @ -Discharged. COVID, influenza, and RSV testing were negative. Chest x-ray reveals no acute process. Patient given a DuoNeb breathing treatment in the emergency department. Advised that this is likely a pleuritis secondary to a viral URI. Rx for Prednisone and albuterol inhaler provided with dosing instructions reviewed. Also discussed [id number] decongestants or Flonase nasal spray for additional management of his symptoms. Patient discharged home in stable condition and will otherwise continue with supportive care. Undiagnosed new problem with uncertain prognosis? @ -None Drug Therapy requiring intensive monitoring for toxicity (Heparin, Nitro, Insulin, Cardizem)? @ -None Were any procedures done? @ -None Diagnosis/symptom? @ -Viral URI, pleuritis Acute, or Chronic, or Acute on Chronic? @ -Acute Uncomplicated (without systemic symptoms) or Complicated (systemic symptoms)? @ -Uncomplicated Side effects of treatment? @ -None Exacerbation, Progression, or Severe Exacerbation] @ -Not applicable Poses a threat to life or bodily function? @ -No Return precautions reviewed in depth, the patient is instructed to return to the emergency department with any new, worsening, or concerning symptoms. Patient verbalized understanding. This case was discussed in detail with the attending ED physician, Dr. Donnelly. Presentation, findings, and treatment plan discussed in detail as well. - Lab Data Lab Results 12/27/22 Range/Units 06:21 Influenza Type A (PCR) Not Detected (Not Detectd) Influenza Type B (PCR) Not Detected (Not Detectd) RSV (PCR) Not Detected (Not Detectd) SARS-CoV-2 (PCR) Not Detected (Not Detectd) - Radiology Data Radiology results: report reviewed, image reviewed Disposition Clinical Impression: Viral URI, Pleurisy, Nicotine dependence due to vaping tobacco product Disposition: HOME SELF-CARE Instructions (If sedation given, give patient instructions): Pleurisy (ED), Upper Respiratory Infection (ED) Additional Instructions: Return to the emergency department with any new, worsening, or concerning symptoms. Take the prednisone daily for 5 days. You can use the albuterol inhaler 4-6 times daily as needed for shortness of breath. You can use [id number] Flonase nasal spray or other decongestants to further help with your symptoms. Follow up with your primary care provider in 1-2 days. Prescriptions: Albuterol Sulfate [Albuterol Sulfate Hfa] 1 puff PO Q4-6H PRN #8.5 gm PRN Reason: Shortness Of Breath predniSONE 50 mg PO DAILY 5 Days #5 tab Is patient prescribed a controlled substance at d/c from ED?: No Referrals: Tariq Miller MD [Primary Care Provider] - 1-2 days
--- NOTE | 2022-12-27 08:08 | XR ---
EXAMINATION TYPE: XR chest 2V DATE OF EXAM: 12/27/2022 7:59 AM CLINICAL INDICATION:Male, 32 years old with history of Chest pain; COMPARISON: None TECHNIQUE: XR chest 2V Frontal and lateral views of the chest. FINDINGS: Lungs/Pleura: There is no evidence of pleural effusion, focal consolidation, or pneumothorax. Pulmonary vascularity: Unremarkable. Heart/mediastinum: Cardiomediastinal silhouette is unremarkable. Musculoskeletal: No acute osseous pathology. IMPRESSION: Low lung volumes with a generalized hazy appearance which could represent atelectasis.
[2022-12-27 09:16] VITALS: BP 128/85; PULSE 75; RESP 18; TEMP 98.5
== END 2022-12-27 09:06 | disposition home or self-care (01) ==
LOC: EC 06:09
DX: R09.1 Pleurisy (principal); F17.290 Nicotine dependence, other tobacco product, uncomplicated; J06.9 Acute upper respiratory infection, unspecified; Z20.822 Contact with and (suspected) exposure to COVID-19
CPT/HCPCS: 71046; 87636; 94640; 99285; 99406

== ENCOUNTER 2024-01-14 00:56 | Emergency (ER) | payer BC ==
[2024-01-14 01:00] VITALS: BP 141/97; PULSE 73; RESP 16; TEMP 98.5
--- NOTE | 2024-01-14 01:13 | ED ---
ENT HPI - General Chief complaint: Dental/Oral Stated complaint: mouth pain Time Seen by Provider: 01/14/24 01:00 Source: patient Mode of arrival: ambulatory Limitations: no limitations - History of Present Illness Initial comments: 33-year-old male presenting with chief complaint of dental pain. Has been ongoing for 2 weeks and steadily worsening. Located on the left lower side. This is a shooting pain. There is some swelling as well. He has an appointment with dentist tomorrow morning just needed help controlling the pain tonight. no fevers nausea vomiting difficulty breathing or swallowing - Related Data Home Medications Medication Instructions Recorded Confirmed Ibuprofen 600 mg PO Q8H PRN 07/23/19 07/23/19 Previous Rx's Medication Instructions Recorded Hydrocodone/Acetaminophen [[place] 1 tab PO Q6HR PRN 3 Days #12 tab 07/25/19 5-325] Dicyclomine [Bentyl] 20 mg PO QID #15 tablet 05/10/20 Ondansetron Odt [Zofran ODT] 4 mg PO Q8HR PRN #10 tab 05/10/20 Albuterol Sulfate [Albuterol 1 puff PO Q4-6H PRN #8.5 gm 12/27/22 Sulfate Hfa] predniSONE 50 mg PO DAILY 5 Days #5 tab 12/27/22 Amoxic-Pot Clav 875-125Mg 1 tab PO Q12HR 7 Days #14 tab 01/14/24 [Augmentin 875-125] Allergies Allergy/AdvReac Type Severity Reaction Status Date / Time No Known Allergies Allergy Verified 01/14/24 00:57 Review of Systems ROS Statement: Those systems with pertinent positive or pertinent negative responses have been documented in the HPI. ROS Other: All systems not noted in ROS Statement are negative. Past Medical History Past Medical History: No Reported History Additional Past Medical History / Comment(s): trigeminal neuralgia History of Any Multi-Drug Resistant Organisms: None Reported Past Surgical History: No Surgical Hx Reported Past Anesthesia/Blood Transfusion Reactions: No Reported Reaction Past Psychological History: No Psychological Hx Reported Smoking Status: Vaper Past Alcohol Use History: Rare Past Drug Use History: None Reported - Past Family History Father Family Medical History: No Reported History Mother Family Medical History: No Reported History General Exam Limitations: no limitations General appearance: alert, in no apparent distress Head exam: Present: atraumatic, normocephalic, normal inspection Eye exam: Present: normal appearance, EOMI Expanded Teeth exam: Present: dental caries, dental tenderness # Throat exam: normal inspection Neck exam: Present: normal inspection. Absent: meningismus Respiratory exam: Absent: respiratory distress Cardiovascular Exam: Present: regular rate Neurological exam: Present: alert, oriented X3 Psychiatric exam: Present: normal affect, normal mood Skin exam: Present: warm, dry Course Vital Signs 01/14/24 00:57 Temperature 98.5 F Pulse Rate 73 Respiratory 16 Rate Blood Pressure 141/97 O2 Sat by Pulse 99 Oximetry Medical Decision Making - Medical Decision Making Was pt. sent in by a medical professional or institution (, PA, MAKE UP MAN, urgent care, hospital, or halfway...) When possible be specific @ -No Did you speak to anyone other than the patient for history (EMS, parent, family, police, friend...)? What history was obtained from this source @ -No Did you review nursing and triage notes (agree or disagree)? Why? @ -I reviewed and agree with nursing and triage notes Were old charts reviewed (outside hosp., previous admission, EMS record, old EKG, old radiological studies, urgent care reports/EKG's, halfway records)? Report findings @ -No old charts were reviewed Differential Diagnosis (chest pain, altered mental status, abdominal pain women, abdominal pain men, vaginal bleeding, weakness, fever, dyspnea, syncope, headache, dizziness, GI bleed, back pain, seizure, CVA, palpatations, mental health, musculoskeletal)? @ -Differential includes toothache, abscess, Colin's angina, not an all- inclusive list EKG interpreted by me (3pts min.). @ -As above X-rays interpreted by me (1pt min.). @ -None done CT interpreted by me (1pt min.). @ -None done U/S interpreted by me (1pt. min.). @ -None done What testing was considered but not performed or refused? (CT, X-rays, U/S, labs)? Why? @ -None What meds were considered but not given or refused? Why? @ -None Did you discuss the management of the patient with other professionals (professionals i.e. , PA, MAKE UP MAN, lab, RT, psych nurse, social work faculty member, grey goods examiner, teacher, account officer, embedded case manager)? Give summary @ -No Was smoking cessation discussed for >3mins.? @ -No Was critical care preformed (if so, how long)? @ -No Were there social determinants of health that impacted care today? How? (Homelessness, low income, unemployed, alcoholism, drug addiction, transportation, low edu. Level, literacy, decrease access to med. care, alf, rehab)? @ -No Was there de-escalation of care discussed even if they declined (Discuss DNR or withdrawal of care, Hospice)? DNR status @ -No What co-morbidities impacted this encounter? (DM, HTN, Smoking, COPD, CAD, Cancer, CVA, ARF, Chemo, Hep., AIDS, mental health diagnosis, sleep apnea, morbid obesity)? @ -None Was patient admitted / discharged? Hospital course, mention meds given and route, prescriptions, significant lab abnormalities, going to OR and other pert inent info. @ -33-year-old male presenting chief complaint of dental pain. Physical exam appears consistent with abscess. Patient treated with pain medication and Augmentin. Will follow-up with the dentist tomorrow. Follow-up with PCP. Report back to ER with any new or worsening symptoms. Discussed return parameters and answered all questions. Patient conveyed verbal understanding and agreed to the plan. I discussed this case in detail with my attending Dr. Reagan Undiagnosed new problem with uncertain prognosis? @ -No Drug Therapy requiring intensive monitoring for toxicity (Heparin, Nitro, Insulin, Cardizem)? @ -No Were any procedures done? @ -No Diagnosis/symptom? @ -Toothache, dental abscess Acute, or Chronic, or Acute on Chronic? @ -Acute Uncomplicated (without systemic symptoms) or Complicated (systemic symptoms)? @ -Uncomplicated Side effects of treatment? @ -No Exacerbation, Progression, or Severe Exacerbation? @ -No Poses a threat to life or bodily function? How? (Chest pain, [place], [place], pneumonia, PE, COPD, DKA, ARF, appy, cholecystitis, CVA, Diverticulitis, Homicidal, Suicidal, threat to staff... and all critical care pts) @ -No Disposition Clinical Impression: Toothache, Dental abscess Disposition: HOME SELF-CARE Condition: Good Instructions (If sedation given, give patient instructions): Dental Abscess (ED) Additional Instructions: Follow-up with dentist. Report back to ER with any new or worsening symptoms. Prescriptions: Amoxic-Pot Clav 875-125Mg [Augmentin 875-125] 1 tab PO Q12HR 7 Days #14 tab Is patient prescribed a controlled substance at d/c from ED?: No Referrals: Tariq Miller MD [Primary Care Provider] - 1-2 days Time of Disposition: 01:12
[2024-01-14] MEDS: Acetaminophen-Codeine 300-30mg TAB PO STA (01:26)
[2024-01-14] MEDS: ACET/COD 300 MG/30 MG STARTER PACK 6 TAB BTL PO STA (01:26)
[2024-01-14] MEDS: KETOROLAC 15 MG/ML 1 ML VIAL IM STA (01:27)
== END 2024-01-14 01:29 | disposition home or self-care (01) ==
LOC: EC 00:56
DX: K04.7 Periapical abscess without sinus (principal); F17.290 Nicotine dependence, other tobacco product, uncomplicated
CPT/HCPCS: 99283; 96372; J1885